=== PATIENT | female | born 1995 | race Caucasian/White ===

== ENCOUNTER 2022-04-27 21:38 | Observation (INO) | payer OTHER ==
[~2022-04-27] VITALS: Ht 162.6 cm; Wt 78.9 kg
== END 2022-04-27 22:53 | disposition home or self-care (01) ==
LOC: LDRP 21:38
PROVIDERS: ADMIT Obstetrics & Gynecology Obstetrics; ATTEND Obstetrics & Gynecology Obstetrics
DX: O62.9 Abnormality of forces of labor, unspecified (principal); O46.93 Antepartum hemorrhage, unspecified, third trimester; Z3A.28 28 weeks gestation of pregnancy
CPT/HCPCS: 59025; 81002; G0378